=== PATIENT | male | born 1985 ===

== ENCOUNTER 2019-07-22 13:42 | Emergency (ER) | payer MEDICARE ==
[2019-07-22 14:11] VITALS: BP 148/86
--- NOTE | 2019-07-22 14:11 | Event Note ---
ED Screening Note ED Screening Note: COUGH AND CONGESTION PMH NONE PSH NONE RX NONE This initial assessment/diagnostic orders/clinical plan/treatment(s) is/are subject to change based on patients health status, clinical progression and re- assessment by fellow clinical providers in the ED. Further treatment and workup at subsequent clinical providers discretion. Patient/guardian urged not to elope from the ED as their condition may be serious if not clinically assessed and managed. Initial orders include: ACC
--- NOTE | 2019-07-22 15:14 | Emergency Department Report ---
- General Chief Complaint: Upper Respiratory Infection Stated Complaint: CHEST PAIN/COUGH/NAUSEA/VOMITING Time Seen by Provider: 07/22/19 14:10 Source: patient Mode of arrival: Ambulatory Limitations: No Limitations, Language Barrier - History of Present Illness Initial Comments: Patient is 33 years old male with no significant past medical history. Patient presented to the ER complaining of cough, congestion, nausea and vomiting and diarrhea. Patient also complaining of right pink eye for the last 2-3 days associated with discharge and matting in the morning. MD Complaint: fever, cough, rhinorrhea, nasal congestion - Related Data Allergies Allergy/AdvReac Type Severity Reaction Status Date / Time Penicillins Allergy Unknown Verified 07/22/19 13:43 ED Review of Systems ROS: Stated complaint: CHEST PAIN/COUGH/NAUSEA/VOMITING Other details as noted in HPI Comment: All other systems reviewed and negative Constitutional: denies: chills, fever Respiratory: cough. denies: shortness of breath, SOB with exertion, wheezing Cardiovascular: denies: chest pain, palpitations, dyspnea on exertion Gastrointestinal: denies: abdominal pain, nausea, vomiting, diarrhea, constipation, hematemesis, melena, hematochezia ED Past Medical Hx - Past Medical History Previous Medical History?: No - Surgical History Past Surgical History?: No - Social History Smoking Status: Never Smoker Substance Use Type: None ED Physical Exam - General Limitations: No Limitations, Language Barrier General appearance: alert, in no apparent distress - Head Head exam: Present: atraumatic, normocephalic, normal inspection - Eye Eye exam: Present: normal appearance, PERRL, conjunctival injection - ENT ENT exam: Present: normal exam, normal orophraynx, mucous membranes moist - Neck Neck exam: Present: normal inspection, full ROM. Absent: tenderness, meningismus, lymphadenopathy, thyromegaly - Respiratory Respiratory exam: Present: normal lung sounds bilaterally - Cardiovascular Cardiovascular Exam: Present: regular rate, normal rhythm, normal heart sounds - GI/Abdominal GI/Abdominal exam: Present: soft, normal bowel sounds. Absent: distended, tenderness, guarding, rebound, rigid, organomegaly, mass, bruit, pulsatile mass, hernia ED Course Vital Signs 07/22/19 14:10 Temperature 98.2 F Pulse Rate 103 H Respiratory 20 Rate Blood Pressure 148/86 O2 Sat by Pulse 96 Oximetry Critical care attestation.: If time is entered above; I have spent that time in minutes in the direct care of this critically ill patient, excluding procedure time. ED Disposition Clinical Impression: Viral syndrome, Conjunctivitis Disposition: - TO HOME OR SELFCARE Is pt being admited?: No Condition: Stable Instructions: Viral Syndrome (ED), Conjunctivitis (ED) Referrals: [facility] [Provider Group] - 3-5 Days
--- NOTE | 2019-07-22 15:16 | XRay Report ---
PA AND LATERAL CXR HISTORY: Cough. COMPARISON: None FINDINGS: Cardiomediastinal silhouette: Normal cardiac size. Normal mediastinal contours. Lungs: Normal expansion. Normal lung aeration. No pleural effusions. No pneumothorax. Pulmonary vascularity: Normal. Support hardware: None. Additional findings: None. IMPRESSION: Normal chest. Signer Name: Jarred Chandra MD Signed: 07/22/2019 3:12 PM Workstation Name: [id number]
== END 2019-07-22 15:30 | disposition home or self-care (01) ==
LOC: ED 13:42
DX: B34.9 Viral infection, unspecified (principal); H10.31 Unspecified acute conjunctivitis, right eye; Z88.0 Allergy status to penicillin
CPT/HCPCS: 71046